=== PATIENT | male | born 1935 | race African-American/Black ===

== ENCOUNTER 2020-03-06 04:29 | Emergency (ER) | payer MEDICARE, OTHER ==
[~2020-03-06] VITALS: Ht 185.4 cm; Wt 87.2 kg
[~2020-03-06 04:29] MED LIST: AMLO10TA4; ASPI-886; CLOP75TA; FLUT100D; HYDR-2868; INSU100I18; ISOS60TA; LISI-334; METO-247; MULT-460; PANT40TA77; RANI150T2; TERA2CAP3; TRAM50TA; ZINC220C7; [UNRECOGNIZED DRUG - CODE]
[2020-03-06 04:51] LABS: BASO % 1 % (0-3); EOS # 0.2 x10^3/uL (0.0-0.7); EOS % 5 % (0-3); HEMATOCRIT 29.5 % (39.0-53.0); LYMPH # 0.8 x10^3/uL (1.0-4.8); LYMPH % 19 % (24-48); MEAN CORPUSCULAR HEMOGLOBIN 31 pg (25-35); MEAN CORPUSCULAR HGB CONC 34 g/dL (31-37); MEAN CORPUSCULAR VOLUME 91 fL (79-100); MONO # 0.6 x10^3/uL (0.0-1.1); MONO % 15 % (0-9); NEUT # 2.5 x10^3/uL (1.8-7.7); NEUT % 59 % (31-73); PLATELET COUNT 217 x10^3/uL (140-400); RED BLOOD COUNT 3.24 x10^6/uL (4.30-5.70); WHITE BLOOD COUNT 4.2 x10^3/uL (4.0-11.0)
[2020-03-06 04:58] LABS: PROTHROMBIN TIME PATIENT 15.2 SEC (11.7-14.0)
[2020-03-06] MEDS ORDERED: NEOMY/BACITR/POLYMYXIN OINT PACKET. TP ONE (05:00)
[2020-03-06] MEDS ORDERED: LIDOCAINE 2%/EPI 1:100,000 20 ML VIAL. INJ ONE (05:00)
--- NOTE | 2020-03-06 05:15 | RAD ---
CT head without contrast. CT cervical spine without contrast. PQRS statement: CT scans at this facility use dose reduction including either automated exposure control, iterative reconstructions, and /or weight based radiation dosing via mA and kV modification when appropriate to reduce radiation dose to as low as reasonably achievable. HISTORY: Fall, scalp laceration, pain. COMPARISON: CT head November 23, 2013. CT head findings: No intracranial hemorrhage, mass or hydrocephalus. 1 cm linear hypodensity of the central lluvia image 11 and subcentimeter hypodensity of the left thalamus are new from prior imaging and may represent age-indeterminate ischemic infarcts. 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 No intracranial hemorrhage, mass or hydrocephalus. Hypodensity of the right basal ganglia may be a chronic infarct image 14 stable. Cerebral white matter hypoattenuation presumably changes of proximal vessel ischemic disease. Generalized brain atrophy. Right parietal scalp laceration with a subcentimeter in thickness hematoma there are radiopaque densities about the soft tissues at the laceration which could be small foreign bodies. Orbits, mastoids and bones are unremarkable. IMPRESSION: 1. No acute traumatic intracranial CT abnormality. 2. Right parietal scalp laceration with subcentimeter in thickness underlying hematoma and radiopaque densities could be foreign bodies. No skull fracture. 3. Age-indeterminate small hypodense ischemic infarcts of the lluvia and left thalamus new from prior imaging. CT cervical spine findings: Craniocervical junction intact. Cervical vertebral body height and alignment intact. Chronic ossicle inferior of the anterior C1 arch and arthritic change of the C1-C2 level no articulation with bone spurring. No fracture of the cervical spine. Multilevel cervical disc height loss with disc bulges, disc osteophytes and uncovertebral and facet spurs with spinal canal or foraminal stenoses with probable severe stenotic disease at most levels. Lung apices and paraspinal tissues are unremarkable. IMPRESSION: No acute osseous injury of the cervical spine. Cervical disc disease. Electronically signed by: Genaro Lucas MD (03/06/2020 5:12 AM) [facility]
--- NOTE | 2020-03-06 05:37 | PHYS DOC ---
Past Medical History Past Medical History: CAD, Hypertension Additional Past Medical Histor: CABG, CAD, OA, NEUROPATHY Past Surgical History: Coronary Bypass Surgery Smoking Status: Never Smoker Alcohol Use: None Drug Use: None General Adult EDM: Chief Complaint: TRAUMA ALERT HPI: HPI: An 84-year-old male presents to the emergency department for a mechanical fall that happened 2 hours ago. The patient tripped and fell and hit his head on a TV stand causing scalp laceration. He was picked up by EMS and brought to the emergency department. Patient denies any loss of consciousness or lightheadedness as a cause of his fall. Patient is on blood thinners. Patient has headaches associated with trauma to head, but denies any other physical trauma to rest his body. Reports neck pain. Denies nausea or vomiting. Reports last tetanus < 5 years. Review of Systems: Review of Systems: Constitutional: Denies fever or chills Eyes: Denies redness or eye pain HENT: Denies nasal congestion or sore throat Respiratory: Denies cough or shortness of breath Cardiovascular: Denies chest pain or palpitations GI: Denies abdominal pain, nausea, or vomiting : Denies dysuria or hematuria Musculoskeletal: Denies back pain; reports neck pain Integument: 2 inch laceration to the scalp Neurologic: Denies headache, focal weakness or sensory changes Complete systems were reviewed and found to be within normal limits, except as documented in this note. Current Medications: Current Medications Medications (Trade) Dose Ordered Sig/[facility] Start Time Stop Time Status Last Admin Dose Admin Lidocaine/ Epinephrine (LIDOCAINE 2%-EPI 1:100,000 multi-dose) 20 ml 1X ONCE 03/06/20 05:00 03/06/20 05:01 DC Neomycin/ Polymyxin/ Bacitracin (Triple Antibiotic Ointment) 1 pkt 1X ONCE 03/06/20 05:00 03/06/20 05:01 DC Allergies: Allergies: Allergies Coded Allergies Type Severity Reaction Last Updated Verified lorazepam Allergy Intermediate 12/09/13 Yes morphine Allergy Intermediate 12/09/13 Yes oxycodone Allergy Intermediate 12/09/13 Yes simvastatin Allergy Intermediate 12/09/13 Yes acetaminophen Allergy Mild 12/09/13 Yes Physical Exam: PE: Constitutional: Well developed, well nourished, no acute distress, non-toxic appearance HENT: Normocephalic, 3cm superior occipital laceration with smaller 1cm occipital laceration just cephalad Eyes: PERRL, EOMI, conjunctiva normal, no discharge, no nystagmus Neck: C-collar in place per EMS, supple Lungs & Thorax: Chest rise and fall bilaterally normally, no respiratory distress Abdomen: Soft, no tenderness; pelvis stable and nontender Skin: Warm, dry, no erythema, lacerations to scalp as above Extremities: No tenderness, ROM intact, no edema Neurologic: Alert and oriented X 3, normal motor function, normal sensory function, no focal deficits noted Psychologic: Affect normal, judgment normal Current Patient Data: Labs: Laboratory Tests Test 03/06/20 04:40 White Blood Count 4.2 x10^3/uL (4.0-11.0) Red Blood Count 3.24 x10^6/uL (4.30-5.70) L Hemoglobin 10.0 g/dL (13.0-17.5) L Hematocrit 29.5 % (39.0-53.0) L Mean Corpuscular Volume 91 fL (79-100) Mean Corpuscular Hemoglobin 31 pg (25-35) Mean Corpuscular Hemoglobin Concent 34 g/dL (31-37) Red Cell Distribution Width 14.0 % (11.5-14.5) Platelet Count 217 x10^3/uL (140-400) Neutrophils (%) (Auto) 59 % (31-73) Lymphocytes (%) (Auto) 19 % (24-48) L Monocytes (%) (Auto) 15 % (0-9) H Eosinophils (%) (Auto) 5 % (0-3) H Basophils (%) (Auto) 1 % (0-3) Neutrophils # (Auto) 2.5 x10^3/uL (1.8-7.7) Lymphocytes # (Auto) 0.8 x10^3/uL (1.0-4.8) L Monocytes # (Auto) 0.6 x10^3/uL (0.0-1.1) Eosinophils # (Auto) 0.2 x10^3/uL (0.0-0.7) Basophils # (Auto) 0.0 x10^3/uL (0.0-0.2) Prothrombin Time 15.2 SEC (11.7-14.0) H Prothrombin Time INR 1.2 (0.8-1.1) H Activated Partial Thromboplast Time 37 SEC (24-38) Laboratory Tests 03/06/20 04:40 EKG: EKG: @0436, 66 bpm, artifact baseline PVCs noted, prolonged MD interval 336, QT/QTc equals 468/493, regular rate Radiology/Procedures: Radiology/Procedures: PROCEDURE: CT HEAD AND CERVICAL SPINE WO CT head without contrast. CT cervical spine without contrast. PQRS statement: CT scans at this facility use dose reduction including either automated exposure control, iterative reconstructions, and /or weight based radiation dosing via mA and kV modification when appropriate to reduce radiation dose to as low as reasonably achievable. HISTORY: Fall, scalp laceration, pain. COMPARISON: CT head November 23, 2013. CT head findings: No intracranial hemorrhage, mass or hydrocephalus. 1 cm linear hypodensity of the central lluvia image 11 and subcentimeter hypodensity of the left thalamus are new from prior imaging and may represent age-indeterminate ischemic infarcts. 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 No intracranial hemorrhage, mass or hydrocephalus. Hypodensity of the right basal ganglia may be a chronic infarct image 14 stable. Cerebral white matter hypoattenuation presumably changes of proximal vessel ischemic disease. Generalized brain atrophy. Right parietal scalp laceration with a subcentimeter in thickness hematoma there are radiopaque densities about the soft tissues at the laceration which could be small foreign bodies. Orbits, mastoids and bones are unremarkable. IMPRESSION: 1. No acute traumatic intracranial CT abnormality. 2. Right parietal scalp laceration with subcentimeter in thickness underlying hematoma and radiopaque densities could be foreign bodies. No skull fracture. 3. Age-indeterminate small hypodense ischemic infarcts of the lluvia and left thalamus new from prior imaging. CT cervical spine findings: Craniocervical junction intact. Cervical vertebral body height and alignment intact. Chronic ossicle inferior of the anterior C1 arch and arthritic change of the C1-C2 level no articulation with bone spurring. No fracture of the cervical spine. Multilevel cervical disc height loss with disc bulges, disc osteophytes and uncovertebral and facet spurs with spinal canal or foraminal stenoses with probable severe stenotic disease at most levels. Lung apices and paraspinal tissues are unremarkable. IMPRESSION: No acute osseous injury of the cervical spine. Cervical disc disease. Electronically signed by: Genaro Lucas MD (03/06/2020 5:12 AM) [facility] [place] Course & Med Decision Making: Course & Med Decision Making 84-year-old male presented to the emergency department for lacerations to the occipital scalp as acquired from a mechanical fall from standing. The fall was not caused by loss of consciousness or lightheadedness. The fall was purely mechanical in nature and was witnessed by his . There is no loss of consciousness after the fall. Because of patient's age and that he is on blood thinners we obtained a CT of the head and C-spine, both which returned negative. Laceration on the superior occiput was seen and sufficiently cleaned. It was closed with 5 jared, and small laceration beneath this wound was closed with 2 jared. Because of negative findings on CT and laceration was repaired, patient is stable for discharge. Tetanus up to date. Patient stable for discharge with outpatient follow-up with PCP. Discussed findings and plan with patient, who acknowledges understanding and agreement. Ursula Disclaimer: Dragadelso Disclaimer: This electronic medical record was generated, in whole or in part, using a voice recognition dictation system. Laceration/Wound Repair Laceration/Wound Repair #1: Wound Location: head Wound's Depth, Shape: linear Wound Length (cm): 3 Wound Explored: clean Irrigated w/ Saline (ccs): 100 Anesthesia: Lidocaine w/ Epi (2%) Volume Anesthetic (ccs): 3 Wound Debrided: moderate Sterile Dressing Applied?: Yes Laceration/Wound Repair #2: Wound Location: head Wound's Depth, Shape: linear Wound Length (cm): 1 Wound Explored: clean Irrigated w/ Saline (ccs): 50 Anesthesia: Lidocaine w/ Epi (2%) Volume Anesthetic (ccs): 1 Wound Debrided: moderate Sterile Dressing Applied?: Yes Progress Verbal consent obtained. Time out performed. Hand hygiene utilized. Wound cleaned with ChloraPrep. Anesthesia obtained via a 25-gauge hypodermic needle with total of (4) mL's of lidocaine 2% with epinephrine to both 3cm and 1cm lacerations. Copious irrigation performed. Wound well approximated with total of 7 jared (5 to superior laceration and 2 to cephlad laceration). Patient tolerated procedure well and without difficulty. Empiric antibiotic ointment applied prior to sterile dressing. Departure Departure Impression: Primary Impression: Occipital scalp laceration Qualified Codes: S01.01XA - Laceration without foreign body of scalp, initial encounter Disposition: HOME, SELF-CARE Condition: STABLE Referrals: NO PCP (PCP) Patient Instructions: Head Injury, Adult, [id number], Laceration Care, Adult, [id number] Additional Instructions: Do not soak your wound. You may shower. Clean wound daily with soap and water. Change dressing 2 times daily. Use over the counter antibiotic ointment with each dressing change. [place] need to be removed in 7-10 days. Present to your family doctor or local urgent care for removal. You may also present to the ED but it will be an eneida tional visit/charge. After suture removal you may use Vitamin E ointment to soften the wound and pr event scarring. Justicifation of Admission Dx: Justifications for Admission: Justification of Admission Dx: N/A MINO ROSS DO Mar 06, 2020 05:37
[2020-03-06 06:00] VITALS: BP 167/77
--- NOTE | 2020-03-06 06:30 | EKG ---
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
== END 2020-03-06 06:25 | disposition home or self-care (01) ==
LOC: ER 04:29
DX: S01.01XA Laceration without foreign body of scalp, initial encounter (principal); M54.2 Cervicalgia; R51 Headache; I11.9 Hypertensive heart disease without heart failure; Z98.890 Other specified postprocedural states; Z88.6 Allergy status to analgesic agent; Z88.5 Allergy status to narcotic agent; Z88.8 Allergy status to other drugs, medicaments and biological substances; W01.0XXA Fall on same level from slipping, tripping and stumbling without subsequent striking against object, initial encounter; Y93.89 Activity, other specified; Y92.89 Other specified places as the place of occurrence of the external cause; Y99.8 Other external cause status
CPT/HCPCS: 12002; 36415; 70450; 72125; 85025; 85610; 85730; 93005; 99285; J3490